=== PATIENT | female | born 1945 | race Caucasian/White ===

== ENCOUNTER 2016-08-20 22:02 | Emergency (ER) | payer OTHER, MEDICARE ==
--- NOTE | 2016-08-21 00:16 | DIAGNOSTIC IMAGING REPORT ---
PROCEDURE: CTA THORAX WITH CONTRAST INDICATION: Recent surgery. Shortness of breath. TECHNIQUE: 85 ml of Isovue 370 was injected intravenously and axial images were obtained of the entire thorax with 3D sagittal and coronal MIP reconstructions. COMPARISON: Compared to chest x-ray on 09/06/2014. FINDINGS: There is mild right posterior basilar atelectasis/consolidation. Minimal right pleural effusion. Lungs are otherwise clear. Pulmonary vessels are normal, and there is no evidence of pulmonary embolus. Heart and mediastinum are of normal size. Moderate to marked left coronary vascular calcifications. Mild to moderate degenerative change of the thoracic spine. Findings suggest prior gastric sleeve surgery. There is diastases of the rectus abdominous muscle with herniation of intra-abdominal lipomatous tissue. IMPRESSION: 1. Mild right posterior basilar atelectasis/consolidation . 2. Normal pulmonary vessels. No evidence of pulmonary embolus. 3. Marked left coronary vascular calcifications. 4. Status post gastric sleeve surgery. 5. Findings discussed with Dr. Willis Tolbert. All CT scans at this facility use dose modulation, iterative reconstruction, and/or weight-based dosing when appropriate to reduce radiation dose to as low as reasonably achievable.
--- NOTE | 2016-08-21 00:48 | ED NURSING NOTES ---
Clinical Report - Nurses [facility] [place] [address] 08/20/2016 22:03 [id number] TRI[facility] Triage time 22:15 Aug 20 2016. Acuity: LEVEL 3. Alert. LINO COMA SCORE: Lino Coma Scale: 15- eyes open spontaneously (4); best verbal response- oriented x 4 (5); best motor response- obeys commands (6). --22:45 oTny Uribe R.N. 22:15 08/20/16. BP: 128/48. HR: 50. RR: 16. O2 saturation: 97%. Pain level now: 610. Additional comments: Groin Pain. --22:45 Tony Uribe R.N. Chief Complaint: PELVIC PAIN. 22:15. --01:28 Tony Uribe R.N. 22:15 08/20/16. Temp: 99.1 F. --01:29 Tony Uribe R.N. Weight: 113.3 kg. Height/Length: 60 inches Per Patient. BMI: 48.8. --22:43 Tony Uribe R.N. Medications Lipitor Oral. NovoLIN R Injection. --22:23 Tony Uribe R.N. Docusate Sodium Oral (Capsule 100 mg) 1 capsule, daily. --22:23 Tony Uribe R.N. Omeprazole Oral. --22:24 Tony Uribe R.N. Ondansetron HCl Oral (Tablet 4 mg) 1 tablet, as needed. --22:25 Tony Uribe R.N. OxyCODONE HCl Oral 5 mg 1-2 tabs, 4x a day. --22:26 Tony Uribe R.N. Tamsulosin HCl Oral 0.4 mg, daily. --22:26 Tony Uribe R.N. Atorvastatin Calcium Oral. --22:27 Tony Uribe R.N. Furosemide Oral 40 mg, daily. --22:27 Tony Uribe R.N. Gabapentin Oral 300 mg, 3x a day. --22:28 Tony Uribe R.N. Vicodin Oral 5 mg, 4x a day as needed. --22:29 Tony Uribe R.N. Insulin Aspart Subcutaneous 15-20 units, every AM. --22:30 Tony Uribe R.N. Insulin Glargine Subcutaneous 48 units, every AM. --22:31 Tony Uribe R.N. Losartan Potassium Oral 25 mg, daily. --22:32 Tony Uribe R.N. Metronidazole 0.75% cram. --22:34 Tony Uribe R.N. Mult-Vitamin/Fluoride Oral 2 tabs, daily. --22:35 Tony Uribe R.N. NTG 0.4mg, prn. --22:37 Tony Uribe R.N. Warfarin Sodium Oral 5 mg, daily--,,,. --22:37 Tony Uribe R.N. Wararin 2.5mg, ,. --22:39 Tony Uribe R.N. PriLOSEC Oral, daily. --22:40 Tony Uribe R.N. Medication/allergy information source: the patient. --22:45 Tony Uribe R.N. Allergies Glucophage. Definite Moderate(diarrhea) --22:23 Tony Uribe R.N. History Arrived by private vehicle. Historian: patient. Accompanied by family. Primary physician (Ravi Marroquin (PCP), Donnell Portillo, (surgeon)). ( Ennis catheter pain. Pt states that she had a gastric sleeve surgery 08/17/19`7 at [facility] when a ennis catheter placed to be kept in 4-5 days post-op but she is having groin pain. She states that the catheter is rubbing and pulling at times.). This started yesterday. Onset. (catheter really started bothering her). ( Groin discomfort). Treatment CUSTOMS CONSULTANT: None. PAST MEDICAL HX: Diabetes mellitus. Immunizations: up-to-date. The patient is post-menopausal. SOCIAL HX: Smoker- current status unknown. No alcohol use. No infectious disease exposure. ABUSE ASSESSMENT: No report of abuse. FALL RISK ASSESSMENT: Fall risk assessment completed. No fall risk identified. NUTRITIONAL RISK ASSESSMENT: The nutritional risk assessment revealed no deficiencies. FUNCTIONAL ASSESSMENT: Functional assessment: no impairments noted. LEARNING NEEDS ASSESSMENT: The learning needs assessment revealed no barriers. SKIN INTEGRITY ASSESSMENT: Skin integrity risk assessment completed. No skin integrity risk identified. --22:45 Tony Uribe R.N. PROBLEMS: Hyperlipidemia. Abdominal Pain. Perforated Bowel. Chronic pain. Atrial Fibrillation. Obesity. --22:42 Tony Uribe R.N. ADDITIONAL SURGERIES: Appendectomy. Bowel Surgery. Gallbladder Surgery. Hysterectomy. --22:42 Tony Uribe R.N. Interventions ID band on patient. To treatment room. --22:45 Tony Urieb R.N. PHYSICAL ASSESSMENT Ambulatory to room. GENERAL / NEURO / PSYCH: Alert. Oriented X 4. HEENT: Mucous membranes are pink. RESPIRATORY: ( Feeling slightly SOB today, "ever since surgery."). CVS: Capillary refill less than 2 seconds. GI / : Abdomen soft and nontender. ( Laprascopic surgical sites looks good without drainage or redness.). SKIN: Skin is warm and dry. --22:48 Tony Uribe R.N. NURSING PROGRESS NOTES Patient gowned. Reassurance given. Patient identifiers checked. Call light placed in reach. Side rails up x 1. Bed placed in lowest position. Brakes of bed on. Patient ready for evaluation- chart flagged and ED physician notified. --22:48 Tony Uribe R.N. 22:50 08/20/16. Patient ID band checked for patient name, birthdate and medical record number: patient confirmed. Catheterized urine collected with return of yellow-colored clear urine; odor is normal; sample sent to lab for urinalysis and culture. Specimen labeled in the presence of the patient. --22:56 Tony Uribe R.N. 23:25. EKG was performed by a jluis and shown to the ED physician. --23:26 Camille James ER Tech1 23:20 08/20/2016 Site #1 started via IV in the right forearm with an 20g angiocath, with aseptic technique; one attempt. Blood drawn: rainbow set. Labeled in the presence of the patient and sent to the lab. Saline lock flushed with 10 mL saline. --23:35 Tony Uribe R.N. 23:30 08/20/16. ( Ennis catheter removed.). --23:49 Tony Uribe R.N. 23:40 08/20/16. Patient transported to [place] by stretcher with tech. --23:52 Tony Uribe R.N. 23:30 08/20/16. BP: 122/85. HR: 62. O2 saturation: 99% on room air. Pain level now: 07/01. --00:44 Tony Uribe R.N. 00:15 08/21/16. BP: 158/37. HR: 51. RR: 18. O2 saturation: 100% on room air. Pain level now: 05/03. --00:46 Tony Uribe R.N. 00:46 08/21/16. BP: 146/63. HR: 51. RR: 16. O2 saturation: 99% on room air. Pain level now: 05/03. --00:48 oTny Uribe R.N. 23:45 08/20/2016 Morphine IVP 4 mg given over 2 minute(s) via site #1. Allergies verified, confirmed 5 rights and sedative warning given to the patient. IV patency established. IV site checked: no pain, redness, or swelling. IV flushed thoroughly pre- and post-medication administration. IVP given by RN. --01:23 Tony Uribe R.N. 00:30 08/21/2016 Started 1 gm of Ceftriaxone IVPB in bag #1 50 mL; at 150 mL/hr over 20 minute(s) via site #1 via IV pump. Allergies verified and confirmed 5 rights. IV patency established. IV site checked: no pain, redness, or swelling. IV flushed thoroughly pre- and post-medication administration. --01:24 Tony Uribe R.N. 00:50 08/21/2016 Ceftriaxone IVPB Discontinued: bag #1 infused. Total amount infused: 50 mL. IV patency established. IV site checked: no pain, redness, or swelling. IV flushed thoroughly. --01:26 Tony Uribe R.N. 01:00 08/21/2016 Site #1 removed. Catheter intact. Manual pressure and bandaid applied. --01:26 Tony Uribe R.N. DISPOSITION / DISCHARGE 01:00 08/21/16. BP: 123/78. HR: 55. RR: 16. O2 saturation: 98% on room air. Temp: 98.8 F. Pain level now: 06/03. Additional comments: Abd discomfort. --01:18 Tony Uribe R.N. Departure time: 0105. --01:18 Tony Uribe R.N. Condition at departure: improved. Fall risk assessment completed. Fall interventions initiated. Patient placed in wheelchair. Instructed not to get up without assistance. No learning barriers present. Discharge instructions provided and reviewed with the patient and spouse. Reviewed medication(s) dosing information (Stop taking your Tamulosin, continue taking your other usually prescribed medications as ordered. Prescription given to pt.). Reviewed referral to family practice. Patient verbalized understanding. Written instructions provided in [employer]. The patient was discharged by the physician. She was discharged home and accompanied by spouse. She left the Emergency Department ambulatory and via private vehicle. Spouse driving. --01:21 Tony Uribe R.N. Locked/Released at 08/21/2016 1:29 by Tony Uribe R.N.
--- NOTE | 2016-08-21 00:48 | ED ORDER SUMMARY ---
..... Patient: TONI BARTLETT OrderSheet [facility] VisitID: [id number] [address] [place] [address] 71y, F Registration Date/Time: 08/20/2016 ORDER SHEET Weight: 113.3 kg Allergies: Glucophage GENERAL ORDERS: UA-Culture if indicated Urgent (22:38 08/20/2016 Checo Leonardo) (Ack 22:43 CHagerty ER Sea Kayaking Guide) (22:52 Sue R.N.) Pmo Business Analyst (Continuous) (SOB) (23:12 08/20/2016 Checo Leonardo) (Ack 23:13 AMcQuoid ER Tech1) (23:43 AMcQuoid ER Tech1) CTA Thorax w Cont (Yes) (N/A) Urgent (23:12 08/20/2016 Checo Leonardo) (Ack 23:25 CHagerty ER Sea Kayaking Guide) (0:03 RFay) CBC w Diff Urgent (23:13 08/20/2016 Checo Leonardo) (Ack 23:25 CHagerty ER Sea Kayaking Guide) (23:36 Sue R.N.) CMP Urgent (23:13 08/20/2016 Checo Leonardo) (Ack 23:25 CHagerty ER Sea Kayaking Guide) (23:36 Sue R.N.) PT with INR Urgent (23:13 08/20/2016 Checo Leonardo) (Ack 23:25 CHagerty ER Sea Kayaking Guide) (23:36 Sue R.N.) Troponin-I Urgent (23:13 08/20/2016 Checo Leonardo) (Ack 23:25 CHagerty ER Sea Kayaking Guide) (23:36 Sue R.N.) BNP Urgent (23:13 08/20/2016 Checo Leonardo) (Ack 23:25 CHagerty ER Sea Kayaking Guide) (23:36 Sue R.N.) EKG - ER Stat (23:13 08/20/2016 Checo Leonardo) (Ack 23:13 AMcQuoid ER Tech1) (23:27 AMcQuoid ER Tech1) Pulse oximeter (23:13 08/20/2016 Checo Leonardo) (Ack 23:13 AMcQuoid ER Tech1) (23:43 AMcQuoid ER Tech1) - (ennis cath removal once now) (23:25 08/20/2016 Checo Leonardo) (23:48 Sue North) MEDICATION ORDERS: IV FLUIDS: IV Saline Lock (23:13 08/20/2016 Checo Leonardo) (23:35 Sue Roth.Hilton) Morphine IV 4 mg (HIGH ALERT MEDICATION, NOW) (23:48 08/20/2016 Checo Leonardo) (1:23 Sue Roth.Hilton) Ceftriaxone IV 1 gm/50mL (NOW) (00:14 08/21/2016 Checo Leonardo) (1:24 Sue Roth.Hilton) ORDER SHEET NOTES: [Electronically signed by Tony Uribe R.N. (01:08/21/2016)] [Electronically signed by Willis Tolbert Dr. (07:19 08/21/2016)] [Electronically locked/signed by Tony Uribe R.N. (:08/21/2016)]
--- NOTE | 2016-08-21 00:48 | ED NURSING NOTES ---
Clinical Report - Nurses [facility] [place] [address] 08/20/2016 22:03 [id number] TRI[facility] Triage time 22:15 Aug 20 2016. Acuity: LEVEL 3. Alert. LINO COMA SCORE: Lino Coma Scale: 15- eyes open spontaneously (4); best verbal response- oriented x 4 (5); best motor response- obeys commands (6). --22:45 Tony Uribe R.N. 22:15 08/20/16. BP: 128/48. HR: 50. RR: 16. O2 saturation: 97%. Pain level now: 610. Additional comments: Groin Pain. --22:45 Tony Uribe R.N. Chief Complaint: PELVIC PAIN. 22:15. --01:28 Tony Uribe R.N. 22:15 08/20/16. Temp: 99.1 F. --01:29 Tony Uribe R.N. Weight: 113.3 kg. Height/Length: 60 inches Per Patient. BMI: 48.8. --22:43 Tony Uribe R.N. Medications Lipitor Oral. NovoLIN R Injection. --22:23 Tony Uribe R.N. Docusate Sodium Oral (Capsule 100 mg) 1 capsule, daily. --22:23 Tony Uribe R.N. Omeprazole Oral. --22:24 Tony Uribe R.N. Ondansetron HCl Oral (Tablet 4 mg) 1 tablet, as needed. --22:25 Tony Uribe R.N. OxyCODONE HCl Oral 5 mg 1-2 tabs, 4x a day. --22:26 Tony Uribe R.N. Tamsulosin HCl Oral 0.4 mg, daily. --22:26 Tony Uribe R.N. Atorvastatin Calcium Oral. --22:27 Tony Uribe R.N. Furosemide Oral 40 mg, daily. --22:27 Tony Uribe R.N. Gabapentin Oral 300 mg, 3x a day. --22:28 Tony Uribe R.N. Vicodin Oral 5 mg, 4x a day as needed. --22:29 oTny Uribe R.N. Insulin Aspart Subcutaneous 15-20 units, every AM. --22:30 Tony Uribe R.N. Insulin Glargine Subcutaneous 48 units, every AM. --22:31 Tony Uribe R.N. Losartan Potassium Oral 25 mg, daily. --22:32 Tony Uribe R.N. Metronidazole 0.75% cram. --22:34 Tony Uribe R.N. Mult-Vitamin/Fluoride Oral 2 tabs, daily. --22:35 Tony Uribe R.N. NTG 0.4mg, prn. --22:37 Tony Uribe R.N. Warfarin Sodium Oral 5 mg, daily--,,,. --22:37 Tony Uribe R.N. Wararin 2.5mg, ,. --22:39 Tony Uribe R.N. PriLOSEC Oral, daily. --22:40 Tony Uribe R.N. Medication/allergy information source: the patient. --22:45 Tony Uribe R.N. Allergies Glucophage. Definite Moderate(diarrhea) --22:23 Tony Uribe R.N. History Arrived by private vehicle. Historian: patient. Accompanied by family. Primary physician (Ravi Marroquin (PCP), Donnell Portillo, (surgeon)). ( Ennis catheter pain. Pt states that she had a gastric sleeve surgery 08/17/19`7 at [facility] when a ennis catheter placed to be kept in 4-5 days post-op but she is having groin pain. She states that the catheter is rubbing and pulling at times.). This started yesterday. Onset. (catheter really started bothering her). ( Groin discomfort). Treatment FAN BALANCER: None. PAST MEDICAL HX: Diabetes mellitus. Immunizations: up-to-date. The patient is post-menopausal. SOCIAL HX: Smoker- current status unknown. No alcohol use. No infectious disease exposure. ABUSE ASSESSMENT: No report of abuse. FALL RISK ASSESSMENT: Fall risk assessment completed. No fall risk identified. NUTRITIONAL RISK ASSESSMENT: The nutritional risk assessment revealed no deficiencies. FUNCTIONAL ASSESSMENT: Functional assessment: no impairments noted. LEARNING NEEDS ASSESSMENT: The learning needs assessment revealed no barriers. SKIN INTEGRITY ASSESSMENT: Skin integrity risk assessment completed. No skin integrity risk identified. --22:45 Tony Uribe R.N. PROBLEMS: Hyperlipidemia. Abdominal Pain. Perforated Bowel. Chronic pain. Atrial Fibrillation. Obesity. --22:42 Tony Uribe R.N. ADDITIONAL SURGERIES: Appendectomy. Bowel Surgery. Gallbladder Surgery. Hysterectomy. --22:42 Tony Uribe R.N. Interventions ID band on patient. To treatment room. --22:45 Tony Uribe R.N. PHYSICAL ASSESSMENT Ambulatory to room. GENERAL / NEURO / PSYCH: Alert. Oriented X 4. HEENT: Mucous membranes are pink. RESPIRATORY: ( Feeling slightly SOB today, "ever since surgery."). CVS: Capillary refill less than 2 seconds. GI / : Abdomen soft and nontender. ( Laprascopic surgical sites looks good without drainage or redness.). SKIN: Skin is warm and dry. --22:48 Tony Uribe R.N. NURSING PROGRESS NOTES Patient gowned. Reassurance given. Patient identifiers checked. Call light placed in reach. Side rails up x 1. Bed placed in lowest position. Brakes of bed on. Patient ready for evaluation- chart flagged and ED physician notified. --22:48 Tony Uribe R.N. 22:50 08/20/16. Patient ID band checked for patient name, birthdate and medical record number: patient confirmed. Catheterized urine collected with return of yellow-colored clear urine; odor is normal; sample sent to lab for urinalysis and culture. Specimen labeled in the presence of the patient. --22:56 Tony Uribe R.N. 23:25. EKG was performed by a jluis and shown to the ED physician. --23:26 Camille James ER Tech1 23:20 08/20/2016 Site #1 started via IV in the right forearm with an 20g angiocath, with aseptic technique; one attempt. Blood drawn: rainbow set. Labeled in the presence of the patient and sent to the lab. Saline lock flushed with 10 mL saline. --23:35 Tony Uribe R.N. 23:30 08/20/16. ( Ennis catheter removed.). --23:49 Tony Uribe R.N. 23:40 08/20/16. Patient transported to [place] by stretcher with tech. --23:52 Tony Uribe R.N. 23:30 08/20/16. BP: 122/85. HR: 62. O2 saturation: 99% on room air. Pain level now: 07/01. --00:44 Tony Uribe R.N. 00:15 08/21/16. BP: 158/37. HR: 51. RR: 18. O2 saturation: 100% on room air. Pain level now: 05/03. --00:46 Tony Uribe R.N. 00:46 08/21/16. BP: 146/63. HR: 51. RR: 16. O2 saturation: 99% on room air. Pain level now: 05/03. --00:48 Tony Uribe R.N. 23:45 08/20/2016 Morphine IVP 4 mg given over 2 minute(s) via site #1. Allergies verified, confirmed 5 rights and sedative warning given to the patient. IV patency established. IV site checked: no pain, redness, or swelling. IV flushed thoroughly pre- and post-medication administration. IVP given by RN. --01:23 Tony Uribe R.N. 00:30 08/21/2016 Started 1 gm of Ceftriaxone IVPB in bag #1 50 mL; at 150 mL/hr over 20 minute(s) via site #1 via IV pump. Allergies verified and confirmed 5 rights. IV patency established. IV site checked: no pain, redness, or swelling. IV flushed thoroughly pre- and post-medication administration. --01:24 Tony Uribe R.N. 00:50 08/21/2016 Ceftriaxone IVPB Discontinued: bag #1 infused. Total amount infused: 50 mL. IV patency established. IV site checked: no pain, redness, or swelling. IV flushed thoroughly. --01:26 Tony Uribe R.N. 01:00 08/21/2016 Site #1 removed. Catheter intact. Manual pressure and bandaid applied. --01:26 Tony Uribe R.N. DISPOSITION / DISCHARGE 01:00 08/21/16. BP: 123/78. HR: 55. RR: 16. O2 saturation: 98% on room air. Temp: 98.8 F. Pain level now: 06/03. Additional comments: Abd discomfort. --01:18 Tony Uribe R.N. Departure time: 0105. --01:18 Tony Uribe R.N. Condition at departure: improved. Fall risk assessment completed. Fall interventions initiated. Patient placed in wheelchair. Instructed not to get up without assistance. No learning barriers present. Discharge instructions provided and reviewed with the patient and spouse. Reviewed medication(s) dosing information (Stop taking your Tamulosin, continue taking your other usually prescribed medications as ordered. Prescription given to pt.). Reviewed referral to family practice. Patient verbalized understanding. Written instructions provided in Russian. The patient was discharged by the physician. She was discharged home and accompanied by spouse. She left the Emergency Department ambulatory and via private vehicle. Spouse driving. --01:21 Tony Uribe R.N. Locked/Released at 08/21/2016 1:29 by Tony Uribe R.N.
--- NOTE | 2016-08-21 00:48 | ED CLINICAL REPORT ---
Clinical Report - Physicians/Mid Levels [facility] [address] [place] [address] 08/20/2016 22:03 Patient: TONI BARTLETT Time Seen: 8. Arrived- By private vehicle. Historian- patient. HISTORY OF PRESENT ILLNESS Chief Complaint: DYSPNEA. This started past several days and is still present (unchanged). It was abrupt in onset and has been constant but is not gone now. The dyspnea is described as mild and is worsened by exertion and is improved by rest. No cough, fever, wheezing, chest pain or calf pain. No foot swelling. (patient with recentbariatric surgery. Symptoms started shortly after. Patient is also concerned about the discomfort associated with her Boland catheter. Patient reports that she had a catheter because "my bladder didn't wake up." Patient states that she has had a trial of self-catheter. Reports that this was unsuccessful. Patient was no other symptoms at this time. Patient works no other changes with her urinary symptoms or habits.). Similar symptoms previously: None. Recent medical care: The patient was seen recently by a health care provider (Recent bariatric surgery). REVIEW OF SYSTEMS No nausea, vomiting, abdominal pain, headache or skin rash. All systems otherwise negative, except as recorded above. PAST HISTORY See nurses notes. Medications: PriLOSEC Oral, daily. Wararin 2.5mg, ,,. Warfarin Sodium Oral 5 mg, daily--,,,. NTG 0.4mg, prn. Mult-Vitamin/Fluoride Oral 2 tabs, daily. Metronidazole 0.75% cram. Losartan Potassium Oral 25 mg, daily. Insulin Glargine Subcutaneous 48 units, every AM. Insulin Aspart Subcutaneous 15-20 units, every AM. Vicodin Oral 5 mg, 4x a day as needed. Gabapentin Oral 300 mg, 3x a day. Furosemide Oral 40 mg, daily. Atorvastatin Calcium Oral. Tamsulosin HCl Oral 0.4 mg, daily. OxyCODONE HCl Oral 5 mg 1-2 tabs, 4x a day. Ondansetron HCl Oral (Tablet 4 mg) 1 tablet, as needed. Omeprazole Oral. Docusate Sodium Oral (Capsule 100 mg) 1 capsule, daily. Lipitor Oral. NovoLIN R Injection. Allergies: Glucophage. Definite Moderate(diarrhea). SOCIAL HISTORY Never smoker. No alcohol use or drug use. No recent travel. Is a local resident. ADDITIONAL NOTES The nursing notes have been reviewed. PHYSICAL EXAM Vital Signs: 08/20/2016 22:15 BP: 128/48. HR: 50. RR: 16. O2 saturation: 97%. Pain level now: 10/01. 08/20/2016 22:15 Temp: 99.1 F. Blood pressure normal. Oxygen saturation normal. Appearance: Alert. No acute distress. (pleasant, cooperative, smiling, nontoxic). Eyes: Pupils equal, round and reactive to light. Eyes normal inspection. ENT: Ears normal. Nose normal. Pharynx normal. Uvula midline. Neck: Normal inspection. No jugular venous distention. Neck supple. CVS: Normal heart rate and rhythm. Heart sounds normal. Pulses normal. Respiratory: No respiratory distress. Breath sounds normal. No wheezes, stridor, rales or rhonchi. Abdomen: Soft and nontender. No organomegaly. Back: Normal inspection. Skin: Skin warm and dry. Normal skin color. No rash. Normal skin turgor. Extremities: Extremities exhibit normal ROM. No lower extremity edema. Neuro: Oriented X 3. No motor deficit. No sensory deficit. LABS, X-RAYS, AND EKG Chest CT: (PROCEDURE: CTA THORAX WITH CONTRAST INDICATION: Recent surgery. Shortness of breath. TECHNIQUE: 85 ml of Isovue 370 was injected intravenously and axial images were obtained of the entire thorax with 3D sagittal and coronal MIP reconstructions. COMPARISON: Compared to chest x-ray on 09/06/2014. FINDINGS: There is mild right posterior basilar atelectasis/consolidation. Minimal right pleural effusion. Lungs are otherwise clear. Pulmonary vessels are normal, and there is no evidence of pulmonary embolus. Heart and mediastinum are of normal size. Moderate to marked left coronary vascular calcifications. Mild to moderate degenerative change of the thoracic spine. Findings suggest prior gastric sleeve surgery. There is diastases of the rectus abdominous muscle with herniation of intra-abdominal lipomatous tissue. IMPRESSION: 1. Mild right posterior basilar atelectasis/consolidation . 2. Normal pulmonary vessels. No evidence of pulmonary embolus. 3. Marked left coronary vascular calcifications. 4. Status post gastric sleeve surgery.). Chest CT performed with contrast. The study was independently viewed by me and interpreted by the radiologist. The study was discussed with the radiologist (via phone and pacs). Laboratory Tests: UA-Culture if indicated: (ARACELI: 08/20/2016 22:50) ( [facility] 23:05) Final results Test Result Flag Units (Reference) URINE COLOR YELLOW URINE APPEARANCE CLEAR URINE GLUCOSE NEGATIVE (NEGATIVE) URINE BILIRUBIN 2+ (NEGATIVE) URINE KETONE 3+ (NEGATIVE) URINE SPECIFIC GRAVITY 1.020 (1.010-1.030) URINE PH 6.0 (5.0-8.0) URINE PROTEIN 2+ (NEGATIVE) URINE UROBILINOGEN 1.0 EU/dL (0.2-1.0) URINE NITRITE NEGATIVE (NEGATIVE) URINE BLOOD 3+ (NEGATIVE) URINE LEUK ESTERASE POSITIVE (NEGATIVE) URINE RBC 25-50 rbc/hpf (0-1) URINE WBC 10-15 wbc/hpf (0-1) URINE EPITHELIAL CELLS 1-3 EPI/hpf (0-5) URINE BACTERIA MODERATE (2+ TO 3+) (NONE SEEN) URINE COMMENT CULTURE INDICATED URINE CULTURES ARE SET-UP BASED ON THE FOLLOWING CRITERIA:POSITIVE NITRITEPOSITIVE LEUKOCYTE ESTERASEGREATER THAN 10 WHITE BLOOD CELLSMODERATE (2+) OR GREATER BACTERIA CBC w Diff: (ARACELI: 08/20/2016 23:30) ( [facility] 08/20/2016 23:38) Final results Test Result Flag Units (Reference) WHITE BLOOD COUNT 7.6 K/uL (4.5-11.5) RED BLOOD COUNT 3.89 L M/uL (4.00-5.20) HEMOGLOBIN 11.9 L gm/dL (12.0-16.0) HEMATOCRIT 35.6 L % (36.0-46.0) MEAN CELL VOLUME 91 fL (80-100) MEAN CORPUSCULAR HGB 31 pg (26-34) MEAN CORPUSCULAR HGB CONC 34 g/dL (31-37) RED CELL DISTRIBUTION WIDTH 13.0 % (11.6-14.8) PLATELET COUNT 224 K/uL (150-400) LYMPH % 28.0 % (25-40) MONO % 8.2 % (3-14) GRANULOCYTE % 63.8 (53-90) PT with INR: (ARACELI: 08/20/2016 23:30) ( [facility] 08/20/2016 23:45) Final results Test Result Flag Units (Reference) INR 1.0 (0.8-1.2) Low Intensity Therapy: INR 1.5-2.0 PT range 18.5-23.1Mod.Intensity Therapy: INR 2.0-3.0 PT range 23.1-31.5High Intensity Therapy: INR 2.5-3.5 PT range 27.4-35.5High Intensity Therapy 2: INR 3.0-4.0 PT range 31.5-39.3 BNP: (ARACELI: 08/20/2016 23:30) ( [facility] 08/20/2016 23:53) Final results Test Result Flag Units (Reference) B-TYPE NATRIURETIC PEPTIDE 112 H pg/ml (5-100) CMP: (ARACELI: 08/20/2016 23:30) ( [facility] 08/20/2016 23:54) Final results Test Result Flag Units (Reference) GLUCOSE 135 H mg/dL (70-110) BUN 12 mg/dL (7-18) CREATININE 0.8 mg/dL (0.6-1.3) Estimated GFR >60 mL/min Estimated GFR- >60 mL/min Note: Persistent reduction over 3 months in eGFR<60 mL/min/1.73 m2 defines CKD. Patients with eGFR values>=60 mL/min/1.73 m2 may also have CKD if evidence ofpersistent proteinuria. Additional information may be foundat www.kidney.org. SODIUM 140 mmol/L (136-145) POTASSIUM 4.0 mmol/L (3.5-5.1) CHLORIDE 103 mmol/L (98-107) CARBON DIOXIDE 27 mmol/L (21-32) CALCIUM 9.2 mg/dL (8.5-10.1) TOTAL PROTEIN 6.6 g/dL (6.4-8.2) ALBUMIN 3.4 g/dL (3.3-5.0) BILIRUBIN, TOTAL 4.6 H mg/dL (0.0-1.0) ALKALINE PHOSPHATASE 118 H U/L (46-116) AST (SGOT) 16 U/L (15-37) ALT (SGPT) 33 U/L (12-78) TROPONIN I <0.05 ng/mL (0.00-1.5) TROPONIN REFERENCE RANGE:<0.1 NEGATIVE0.1-1.5 INDETERMINANT>1.5 POSITIVE . PROGRESS AND PROCEDURES Course of Care: the patient is a pleasant 71-year-old female presenting for evaluation of shortness of breath. Patient also states that she has a concern about the Boland catheter placement. Because of the patient's recent surgery, I am unsure of the reason the Boland catheter has been placed. Patient will be evaluated with consultation to her surgeon who placed the catheter as well as evaluation of shortness of breath. Differential diagnosis for the shortness of breath at this time includes pulmonary embolism, acute myocardial infarction, and pneumonia. Patient is agreeable to the treatment plan. Patient otherwise is resting in bed and in no acute distress. Was able to speak to the patient's bariatric surgeon. Patient with urinary retention for the reason of the Boland catheter placement. Review the risks and benefits of removal of the catheter. Patient states that she cannot tolerate the discomfort from the catheter and would like it to be removed. Patient states if she needs a catheter replaced that she will do so at that time however would like a trial of her. Boland catheter is removed. Patient also with positive urinalysis for urinary tract infection. Antibiotics started here in the emergency department. The patient's workup was remarkable for the findings above otherwise. No signs of pulmonary embolism on examination however patient does have small pleural effusion located on the right. No signs of pneumonia based on patient's history and examination. The findings on CT scan likely represents atelectasis. Patient as been otherwise afebrile here in the emergency department. Patient continues to be resting in bed and in no acute distress. Repeat examination is otherwise benign. Discussed with the patient workup here in the emergency department included diagnosis, home care, follow-up, and return precautions. All questions have been answered. The patient expressed understanding of these instructions and was agreeable to them. Patient expressed her gratitude for her treatment here in the emergency department. patient was also thanked for her cooperative this and her patient's with her workup here in the emergency department. Disposition: Discharged. Condition: good. CLINICAL IMPRESSION Acute dyspnea 08/20/2016 22:15 BP: 128/48. HR: 50. RR: 16. O2 saturation: 97%. Pain level now: 6/10. Blood pressure normal. Oxygen saturation normal. Boland catheter replacement (removal). Acute urinary tract infection. INSTRUCTIONS Warnings: GENERAL WARNINGS: Return or contact your physician immediately if your condition worsens or changes unexpectedly, if not improving as expected, or if other problems arise. SPECIFICALLY, return if you develop chest pain, fever, productive cough, difficulty breathing, excessive fatigue, a fluttering sensation in the chest, fainting or leg swelling. Your Current Medications: STOP TAKING THE FOLLOWING MEDICATIONS: Tamsulosin HCl Oral : 0.4 mg daily. CONTINUE TAKING THE FOLLOWING MEDICATIONS: Atorvastatin Calcium Oral. Docusate Sodium Oral : Capsule 100 mg, 1 capsule daily. Furosemide Oral : 40 mg daily. Gabapentin Oral : 300 mg 3x a day. Insulin Aspart Subcutaneous : 15-20 units every AM. Insulin Glargine Subcutaneous : 48 units every AM. Lipitor Oral. Losartan Potassium Oral : 25 mg daily. Metronidazole 0.75% cram*. Mult-Vitamin/Fluoride Oral : 2 tabs daily. NovoLIN R Injection. NTG* : 0.4mg prn. Omeprazole Oral. Ondansetron HCl Oral : Tablet 4 mg, 1 tablet, prn. OxyCODONE HCl Oral : 5 mg 1-2 tabs 4x a day. PriLOSEC Oral : daily. Vicodin Oral : 5 mg 4x a day, prn. Wararin* : 2.5mg . Warfarin Sodium Oral : 5 mg daily--,,,. Prescription Medications: Cephalexin 500 mg: take 1 capsule orally every 8 hours for 7 days. No refill. (disp 21 caps) Follow-up: Return to the emergency department as needed. Follow up with your doctor in three days. Reason for referral: recheck today's concerns. Summary of care provided to patient via paper. Screening today revealed the patient's blood pressure to be in the normal range. The patient should follow up with a primary care provider for blood pressure management. Understanding of the discharge instructions verbalized by patient. (Electronically signed by Willis Tolbert Dr. 08/21/2016 7:19)
--- NOTE | 2016-08-21 00:48 | ED ORDER SUMMARY ---
..... Patient: TONI BARTLETT OrderSheet [facility] VisitID: [id number] [address] [place] [address] 71y, F Registration Date/Time: 08/20/2016 ORDER SHEET Weight: 113.3 kg Allergies: Glucophage GENERAL ORDERS: UA-Culture if indicated Urgent (22:38 08/20/2016 Checo Leonardo) (Ack 22:43 CHagerty ER Environmental Sustainability Manager) (22:52 Sue R.N.) Sterilizer Machine Operator (Continuous) (SOB) (23:12 08/20/2016 Checo Leonardo) (Ack 23:13 AMcQuoid ER Tech1) (23:43 AMcQuoid ER Tech1) CTA Thorax w Cont (Yes) (N/A) Urgent (23:12 08/20/2016 Checo Leonardo) (Ack 23:25 CHagerty ER Environmental Sustainability Manager) (0:03 RFay) CBC w Diff Urgent (23:13 08/20/2016 Checo Leonardo) (Ack 23:25 CHagerty ER Environmental Sustainability Manager) (23:36 Sue R.N.) CMP Urgent (23:13 08/20/2016 Checo Leonardo) (Ack 23:25 CHagerty ER Environmental Sustainability Manager) (23:36 Sue R.N.) PT with INR Urgent (23:13 08/20/2016 Checo Leonardo) (Ack 23:25 CHagerty ER Environmental Sustainability Manager) (23:36 Sue R.N.) Troponin-I Urgent (23:13 08/20/2016 Checo Leonardo) (Ack 23:25 CHagerty ER Environmental Sustainability Manager) (23:36 Sue R.N.) BNP Urgent (23:13 08/20/2016 Checo Leonardo) (Ack 23:25 CHagerty ER Environmental Sustainability Manager) (23:36 Sue R.N.) EKG - ER Stat (23:13 08/20/2016 Checo Leonardo) (Ack 23:13 AMcQuoid ER Tech1) (23:27 AMcQuoid ER Tech1) Pulse oximeter (23:13 08/20/2016 Checo Leonardo) (Ack 23:13 AMcQuoid ER Tech1) (23:43 AMcQuoid ER Tech1) - (ennis cath removal once now) (23:25 08/20/2016 Checo Leonardo) (23:48 Sue North) MEDICATION ORDERS: IV FLUIDS: IV Saline Lock (23:13 08/20/2016 Checo Leonardo) (23:35 Sue Roth.Hilton) Morphine IV 4 mg (HIGH ALERT MEDICATION, NOW) (23:48 08/20/2016 Checo Leonardo) (1:23 Sue Roth.Hilton) Ceftriaxone IV 1 gm/50mL (NOW) (00:14 08/21/2016 Checo Leonardo) (1:24 Sue Roth.Hilton) ORDER SHEET NOTES: [Electronically signed by Tony Uribe R.N. (01:08/21/2016)] [Electronically signed by Willis Tolbert Dr. (07:19 08/21/2016)] [Electronically locked/signed by Tony Uribe R.N. (:08/21/2016)]
--- NOTE | 2016-08-21 07:20 | ED MAR SUMMARY ---
..... Medication Administration Record [facility] [address] [place] [address] Patient: TONI BARTLETT Visit ID: [id number] 71y, F Weight: 113.3 kg Height/Length: 60 in BMI: 48.8 ALLERGIES: Glucophage Given 23:45 08/20/2016 Tony Uribe RPuneetN. Medication Administered: MORPHINE [IVP], Dose: 4 mg IVP over 2 minute(s), Site: #1 right forearm. Medication Ordered: Morphine IV 4 mg (HIGH ALERT MEDICATION, NOW). Start 00:30 08/21/2016 Tony Uribe, RPuneetN., Stop 00:50 08/21/2016 Tony Uribe, R.N. Medication Administered: CEFTRIAXONE [IVPB], Dose: 1 gm IVPB over 20 minute(s), Rate: 150 mL/hr, Dispensed: 50 mL bag, Site: #1 right forearm. Medication Ordered: Ceftriaxone IV 1 gm/50mL (NOW).
--- NOTE | 2016-08-21 07:20 | ED MAR SUMMARY ---
..... Medication Administration Record [address] [place] [address] Patient: TONI BARTLETT Visit ID: [id number] 71y, F Weight: 113.3 kg Height/Length: 60 in BMI: 48.8 ALLERGIES: Glucophage Given 23:45 08/20/2016 Tony Uribe RPuneetN. Medication Administered: MORPHINE [IVP], Dose: 4 mg IVP over 2 minute(s), Site: #1 right forearm. Medication Ordered: Morphine IV 4 mg (HIGH ALERT MEDICATION, NOW). Start 00:30 08/21/2016 Tony Uribe, RPuneetN., Stop 00:50 08/21/2016 Tony Uribe, R.N. Medication Administered: CEFTRIAXONE [IVPB], Dose: 1 gm IVPB over 20 minute(s), Rate: 150 mL/hr, Dispensed: 50 mL bag, Site: #1 right forearm. Medication Ordered: Ceftriaxone IV 1 gm/50mL (NOW).
--- NOTE | 2016-08-21 07:20 | ED DISCHARGE INSTRUCTIONS ---
Patient: TONI BARTLETT General Instructions [facility] VisitID: [id number] [address] [place] [address] 71y, F Registration Date/Time: 08/20/2016 Acute dyspnea 08/20/2016 22:15 BP: 128/48. HR: 50. RR: 16. O2 saturation: 97%. Pain level now: 6/10. Blood pressure normal. Oxygen saturation normal. Boland catheter replacement (removal). Acute urinary tract infection. INSTRUCTIONS Warnings: GENERAL WARNINGS: Return or contact your physician immediately if your condition worsens or changes unexpectedly, if not improving as expected, or if other problems arise. SPECIFICALLY, return if you develop chest pain, fever, productive cough, difficulty breathing, excessive fatigue, a fluttering sensation in the chest, fainting or leg swelling. Your Current Medications: STOP TAKING THE FOLLOWING MEDICATIONS: Tamsulosin HCl Oral : 0.4 mg daily. CONTINUE TAKING THE FOLLOWING MEDICATIONS: Atorvastatin Calcium Oral. Docusate Sodium Oral : Capsule 100 mg, 1 capsule daily. Furosemide Oral : 40 mg daily. Gabapentin Oral : 300 mg 3x a day. Insulin Aspart Subcutaneous : 15-20 units every AM. Insulin Glargine Subcutaneous : 48 units every AM. Lipitor Oral. Losartan Potassium Oral : 25 mg daily. Metronidazole 0.75% cram*. Mult-Vitamin/Fluoride Oral : 2 tabs daily. NovoLIN R Injection. NTG* : 0.4mg prn. Omeprazole Oral. Ondansetron HCl Oral : Tablet 4 mg, 1 tablet, prn. OxyCODONE HCl Oral : 5 mg 1-2 tabs 4x a day. PriLOSEC Oral : daily. Vicodin Oral : 5 mg 4x a day, prn. Wararin* : 2.5mg . Warfarin Sodium Oral : 5 mg daily--,,,. Prescription Medications: Cephalexin 500 mg: take 1 capsule orally every 8 hours for 7 days. No refill. (disp 21 caps) Follow-up: Return to the emergency department as needed. Follow up with your doctor in three days. Reason for referral: recheck today's concerns. Summary of care provided to patient via paper. Screening today revealed the patient's blood pressure to be in the normal range. The patient should follow up with a primary care provider for blood pressure management. Understanding of the discharge instructions verbalized by patient. ADDITIONAL INFORMATION Dyspnea (Shortness Of Breath) Shortness of Breath (also known as "Dyspnea") is the sense that you can't catch your breath or can't get enough air. Dyspnea can be caused by many different conditions such as: Acute asthma attack Worsening of emphysema (also called "COPD") -- a lung diseasethat is caused by smoking A mucus plug blocks a large air passage in the lung -- this can occur with emphysema or chronic bronchitis Congestive Heart Failure ("CHF") -- when a weak heart muscle allows excess fluid to collect inthe lungs Panic attacks, anxiety -- fear can cause rapid breathing ("hyperventilation") Pneumonia -- infection in the lung tissue Exposure to toxic fumes or smoke Pulmonary embolus (blood clot to the lung) Based on your visit today, the exact cause of your shortness of breath is not certain. Your tests do not show any of the serious causes of dyspnea. Sometimes, further testing is needed to find out if a serious problem exists. Therefore, it is important for you to watch for any new symptoms or worsening of your condition and follow up with your doctor as directed. Home Care: When your symptoms are better, resume your usual activities. If you smoke, you need to stop. Join a stop-smoking program or ask your doctor for help. Follow Up with your doctor or as advised by our staff. Get Prompt Medical Attention if any of the following occur: Increasing shortness of breath or wheezing Redness, pain or swelling in one leg Swelling in both legs or ankles Unexpected weight gain Chest, arm, shoulder, neck or upper back pain Dizziness, weakness or fainting Palpitations (the sense that your heart is fluttering, beating fast or hard) Fever of 100.4F (38C) or higher, or as directed by your healthcare provider Cough with dark colored or bloody sputum (mucus) Boland Catheter Care A Boland catheter is a rubber tube that is placed through the urethra (opening where urine comes out) and into the bladder. This helps drain urine from the bladder. There is a small balloon on the end of the tube that is inflated after insertion. This keeps the catheter from sliding out of the bladder. A Boland catheter is used to treat urinary retention (unable to pass urine). It is also used when there is incontinence (loss of bladder control). Home Care: Finish taking any prescribed antibiotic even if you are feeling better before then. It is important to keep bacteria from getting into the collection bag. Do not disconnect the catheter from the collection bag. Use a leg band to secure the drainage tube, so it does not pull on the catheter. Drain the collection bag when it becomes full using the drain spout at the bottom of the bag. Do not try to pull or remove your catheter. This will injure your urethra. It must be removed by a doctor or nurse. Follow Up with your doctor, or as advised, for repeat urine testing and catheter removal or replacement. Get Prompt Medical Attention if any of the following occur: Fever of 100.4F (38C) or higher, or as directed by your healthcare provider Bladder pain or fullness Abdominal swelling, nausea or vomiting or back pain Blood or urine leakage around the catheter Bloody urine coming from the catheter (if a new symptom) Catheter falls out Catheter stops draining for 6 hours Weakness, dizziness or fainting Bladder Infection,Female (Adult) A bladder infection ("cystitis" or "UTI") usually causes a constant urge to urinate and a burning when passing urine. Urine may be cloudy, smelly or dark. There may be pain in the lower abdomen. A bladder infection occurs when bacteria from the vaginal area enter the bladder opening (urethra). This can occur from sexual intercourse, wearing tight clothing, dehydration and other factors. Home Care: Drink lots of fluids (at least 6-8 glasses a day, unless you must restrict fluids for other medical reasons). This will force the medicine into your urinary system and flush the bacteria out of your body. Avoid sexual intercourse until your symptoms are gone. Avoid caffeine, alcohol and spicy foods. These can irritate the bladder. A bladder infection is treated with antibiotics. You may also be given Pyridium (generic = phenazopyridine) to reduce the burning sensation. This medicine will cause your urine to become a bright orange color. The orange urine may stain clothing. You may wear a pad or panty-liner to protect clothing. Preventing Future Infections: Always wipe from front to back after a bowel movement. Keep the genital area clean and dry. Drink plenty of fluids each day to avoid dehydration. Both sexual partners should wash before intercourse. Urinate right after intercourse to flush out the bladder. Wear cotton underwear and cotton-lined panty hose; avoid tight-fitting pants. If you are on control pills and are having frequent bladder infections, discuss with your doctor. Follow Up: Return to this facility or see your doctor if ALL symptoms are not gone after three days of treatment. Get Prompt Medical Attention if any of the following occur: Fever of 100.4F (38C) or higher, or as directed by your healthcare provider No improvement by the third day of treatment Increasing back or abdominal pain Repeated vomiting; unable to keep medicine down Weakness, dizziness or fainting Vaginal discharge Pain, redness or swelling in the labia (outer vaginal area) Cephalexin Monohydrate Oral tablet What is this medicine? CEPHALEXIN (sef a JOSE in) is a cephalosporin antibiotic. It is used to treat certain kinds of bacterial infections It will not work for colds, flu, or other viral infections. How should I use this medicine? Take this medicine by mouth with a full glass of water. Follow the directions on the prescription label. This medicine can be taken with or without food. Take your medicine at regular intervals. Do not take your medicine more often than directed. Take all of your medicine as directed even if you think you are better. Do not skip doses or stop your medicine early. Talk to your scouring train operator chief regarding the use of this medicine in children. While this drug may be prescribed for selected conditions, precautions do apply. What side effects may I notice from receiving this medicine? Side effects that you should report to your doctor or health critical care nurse practitioner as soon as possible: allergic reactions like skin rash, itching or hives, swelling of the face, lips, or tongue breathing problems pain or trouble passing urine redness, blistering, peeling or loosening of the skin, including inside the mouth severe or watery diarrhea unusually weak or tired yellowing of the eyes, skin Side effects that usually do not require medical attention (report to your doctor or health critical care nurse practitioner if they continue or are bothersome): gas or heartburn genital or anal irritation headache joint or muscle pain nausea, vomiting What may interact with this medicine? probenecid some other antibiotics What if I miss a dose? If you miss a dose, take it as soon as you can. If it is almost time for your next dose, take only that dose. Do not take double or extra doses. There should be at least 4 to 6 hours between doses. Where should I keep my medicine? Keep out of the reach of children. Store at room temperature between 59 and 86 degrees F (15 and 30 degrees C). Throw away any unused medicine after the expiration date. What should I tell my health care provider before I take this medicine? They need to know if you have any of these conditions: kidney disease stomach or intestine problems, especially colitis an unusual or allergic reaction to cephalexin, other cephalosporins, penicillins, other antibiotics, medicines, foods, dyes or preservatives or trying to get breast-feeding What should I watch for while using this medicine? Tell your doctor or health critical care nurse practitioner if your symptoms do not begin to improve in a few days. Do not treat diarrhea with over the counter products. Contact your doctor if you have diarrhea that lasts more than 2 days or if it is severe and watery. If you have diabetes, you may get a false-positive result for sugar in your urine. Check with your doctor or health critical care nurse practitioner. You have been given the following additional information: Dyspnea Boland Catheter, Care Bladder Infection, Female (Adult) Cephalexin Monohydrate Oral tablet (Electronically signed by Willis Tolbert Dr. 08/21/2016 7:19)
--- NOTE | 2016-08-21 07:20 | ED MED RECONCILIATION SUMMARY ---
Patient: TONI BARTLETT Medication Reconciliation Report [facility] VisitID: [id number] [address] [place] [address] 71y, F Registration Date/Time: 08/20/2016 Weight: 113.3 kg Height/Length: 60 in. BMI: 48.8 ALLERGIES: Glucophage The patient's Home Medications are listed below: STOP TAKING THE FOLLOWING MEDICATIONS: Tamsulosin HCl Oral 0.4 mg, daily CONTINUE TAKING THE FOLLOWING MEDICATIONS: Atorvastatin Calcium Oral Docusate Sodium Oral (100 mg) 1 capsule, daily Furosemide Oral 40 mg, daily Gabapentin Oral 300 mg, 3x a day Insulin Aspart Subcutaneous 15-20 units, every AM Insulin Glargine Subcutaneous 48 units, every AM Lipitor Oral Losartan Potassium Oral 25 mg, daily Metronidazole 0.75% cram Mult-Vitamin/Fluoride Oral 2 tabs, daily NovoLIN R Injection NTG 0.4mg, prn Omeprazole Oral Ondansetron HCl Oral (4 mg) 1 tablet OxyCODONE HCl Oral 5 mg 1-2 tabs, 4x a day PriLOSEC Oral, daily Vicodin Oral 5 mg, 4x a day Wararin 2.5mg, Sa,, Warfarin Sodium Oral 5 mg, daily--M,W,,Thurs The source(s) of the original Home Medication information: patient The following Medications were given to the patient in the Emergency Department: Morphine [IVP] IVP 4 mg, administered: 08/20/2016 11:45:00 PM Ceftriaxone [IVPB] IVPB bolus 0, then 1 gm 150 mL/hr, administered: 08/21/2016 12:30:00 AM The following Medications were prescribed to the patient: Cephalexin 500 mg: take 1 capsule orally every 8 hours for 7 days. No refill.(disp 21 caps) -- Willis Tolbert Dr.
--- NOTE | 2016-08-21 07:20 | ED MED RECONCILIATION SUMMARY ---
Patient: TONI BARTLETT Medication Reconciliation Report [facility] VisitID: [id number] [address] [place] [address] 71y, F Registration Date/Time: 08/20/2016 Weight: 113.3 kg Height/Length: 60 in. BMI: 48.8 ALLERGIES: Glucophage The patient's Home Medications are listed below: STOP TAKING THE FOLLOWING MEDICATIONS: Tamsulosin HCl Oral 0.4 mg, daily CONTINUE TAKING THE FOLLOWING MEDICATIONS: Atorvastatin Calcium Oral Docusate Sodium Oral (100 mg) 1 capsule, daily Furosemide Oral 40 mg, daily Gabapentin Oral 300 mg, 3x a day Insulin Aspart Subcutaneous 15-20 units, every AM Insulin Glargine Subcutaneous 48 units, every AM Lipitor Oral Losartan Potassium Oral 25 mg, daily Metronidazole 0.75% cram Mult-Vitamin/Fluoride Oral 2 tabs, daily NovoLIN R Injection NTG 0.4mg, prn Omeprazole Oral Ondansetron HCl Oral (4 mg) 1 tablet OxyCODONE HCl Oral 5 mg 1-2 tabs, 4x a day PriLOSEC Oral, daily Vicodin Oral 5 mg, 4x a day Wararin 2.5mg, Sa,, Warfarin Sodium Oral 5 mg, daily--M,W,,Thurs The source(s) of the original Home Medication information: patient The following Medications were given to the patient in the Emergency Department: Morphine [IVP] IVP 4 mg, administered: 08/20/2016 11:45:00 PM Ceftriaxone [IVPB] IVPB bolus 0, then 1 gm 150 mL/hr, administered: 08/21/2016 12:30:00 AM The following Medications were prescribed to the patient: Cephalexin 500 mg: take 1 capsule orally every 8 hours for 7 days. No refill.(disp 21 caps) -- Willis Tolbert Dr.
== END 2016-08-21 01:05 | disposition home or self-care (01) ==
LOC: ED SRH 22:02
DX: R06.00 Dyspnea, unspecified (principal); Z98.84 Bariatric surgery status; N39.0 Urinary tract infection, site not specified; Z46.6 Encounter for fitting and adjustment of urinary device; E11.9 Type 2 diabetes mellitus without complications; Z79.84 Long term (current) use of oral hypoglycemic drugs; Z79.01 Long term (current) use of anticoagulants; Z79.899 Other long term (current) drug therapy; Z79.891 Long term (current) use of opiate analgesic; Z88.8 Allergy status to other drugs, medicaments and biological substances
CPT/HCPCS: 90004; 90100; 90469; 90616; 91320; 94060; 95059